=== PATIENT | male | born 1950 | race African-American/Black ===

== ENCOUNTER → 2016-12-19 | Outpatient (CLI) | payer MEDICARE, OTHER ==
[~2016-12-19] MED LIST: REGADENOSON 0.4 MG/5 ML IV ONE
== END | disposition home or self-care (01) ==
LOC: NM 07:43
DX: I12.0 Hypertensive chronic kidney disease with stage 5 chronic kidney disease or end stage renal disease (principal); E11.22 Type 2 diabetes mellitus with diabetic chronic kidney disease; N18.6 End stage renal disease
CPT/HCPCS: 78452; 93017; A9500; C1893; J2785

== ENCOUNTER 2017-10-25 10:17 | Day surgery (SDC) | payer MEDICARE, OTHER ==
[~2017-10-25] VITALS: Ht 175.3 cm; Wt 83.5 kg
[~2017-10-25 10:17] MED LIST changes: +GLIM2TAB2 PO; +LISI40TA4 PO; -REGADENOSON 0.4 MG/5 ML IV ONE; +SEVE800T8 PO
[2017-10-25] MEDS ORDERED: BACITRACIN ZINC 15GM TUBE TOP ONE (10:58)
[2017-10-25] MEDS ORDERED: GELATIN SPONGE,ABSORBABLE SZ 100 ONE (10:58)
[2017-10-25] MEDS ORDERED: HEPARIN 100 UNITS/1 ML VIAL ONE (10:58)
[2017-10-25] MEDS ORDERED: LIDOCAINE HCL 1% 20ML VIAL (Pyxis) INJ ONE (10:59)
[2017-10-25] MEDS ORDERED: BUPIVACAINE HCL/PF 0.5% (5MG/ML) 10ML ONE (10:59)
[2017-10-25] MEDS ORDERED: THROMBIN (BOVINE) 5000 UNITS/VIAL TOP ONE (10:59)
[2017-10-25] MEDS ORDERED: HEPARIN SODIUM 1,000 UNIT/1ML VIAL IV ONE (10:59)
[2017-10-25] MEDS ORDERED: BACITRACIN 50,000 UNITS/VIAL ONE (10:59)
[2017-10-25 11:21] LABS: EOSINOPHILS % 4.4 % (0.0-5.0); HEMATOCRIT. 31.8 % (42.0-52.0); LYMPHOCYTES % 11.9 % (20.0-50.0); MEAN CORPUSCULAR HEMOGLOBIN 30.4 pg (28.0-32.0); MEAN CORPUSCULAR VOLUME 88.4 fL (80.0-94.0); MEAN PLATELET VOLUME 8.1 fl (7.4-10.4); MONOCYTES % 10.6 % (2.0-8.0); NEUTROPHILS % 72.1 % (40.0-76.0); PLATELET 252 x1000/uL (130-400)
[2017-10-25 11:26] LABS: INR 1.1; PROTHROMBIN TIME 11.3 sec (9.4-11.6)
[2017-10-25] MEDS ORDERED: SODIUM CHLORIDE 0.9% 500 ML IV ONE (11:30)
[2017-10-25] MEDS ORDERED: DEXTROSE 50% WATER 50ML SYRINGE IV NR (11:30)
[2017-10-25] MEDS ORDERED: FENTANYL CITRATE/PF 50MCG/ML 2ML VIAL ONE (11:42)
[2017-10-25] MEDS ORDERED: MIDAZOLAM HCL 2 MG/2 ML VIAL ONE (11:42)
[2017-10-25] MEDS ORDERED: PROPOFOL 200MG/20ML VIAL IV ONE (11:43)
[2017-10-25] MEDS ORDERED: LIDOCAINE HCL/PF 1% 10 MG/ML 5ML VIAL ONE (11:43)
[2017-10-25] MEDS ORDERED: ACETAMINOPHEN 325MG TABLET PO PRN (11:45)
[2017-10-25] MEDS ORDERED: CEFAZOLIN SODIUM 1000MG/VIAL ONE (11:46)
[2017-10-25] MEDS ORDERED: ONDANSETRON HCL 4MG/2ML VIAL ONE (12:05)
[2017-10-25] MEDS ORDERED: METOCLOPRAMIDE HCL 10MG/2ML VIAL ONE (12:05)
[2017-10-25] MEDS ORDERED: EPHEDRINE SULFATE 50MG/ML VIAL ONE (12:09)
[2017-10-25] MEDS ORDERED: PHENYLEPHRINE HCL 10 MG/ML 1ML (IV VIAL) IV ONE (12:23)
[2017-10-25] MEDS ORDERED: HEPARIN 1000 UNITS/ML 10ML ONE (12:24)
[2017-10-25] MEDS ORDERED: PROTAMINE SULFATE 10MG/ML VIAL 5ML IV ONE (13:15)
[2017-10-25] MEDS ORDERED: CINA30 PO (13:35)
[2017-10-25] MEDS ORDERED: FLUC200T51 PO (13:35)
[2017-10-25] MEDS ORDERED: MORPHINE SULFATE 4 MG/ML CPJ (NOT FOR IM USE) IV PRN (14:15)
== END 2017-10-25 16:35 | disposition home or self-care (01) ==
LOC: OR 10:17
PROVIDERS: ATTEND Surgery Vascular Surgery
DX: T82.898A Other specified complication of vascular prosthetic devices, implants and grafts, initial encounter (principal); I44.0 Atrioventricular block, first degree; E11.22 Type 2 diabetes mellitus with diabetic chronic kidney disease; I12.0 Hypertensive chronic kidney disease with stage 5 chronic kidney disease or end stage renal disease; N18.6 End stage renal disease; Z99.2 Dependence on renal dialysis; Z91.048 Other nonmedicinal substance allergy status
CPT/HCPCS: 36415; 36838; 80048; 82962; 85025; 85610; 85730; 93005; C1768; J0171; J0690; J1644; J2250; J2370; J2405; J2720; J2765; J3010; J3490; J7040; J1642; J2704

== ENCOUNTER → 2018-02-05 | Outpatient (CLI) | payer MEDICARE ==
[~2018-02-05] MED LIST changes: +CINA30 PO; +FLUC200T51 PO
== END | disposition home or self-care (01) ==
LOC: RAD 09:32
PROVIDERS: ATTEND Internal Medicine Nephrology
DX: M25.511 Pain in right shoulder (principal); R53.1 Weakness
CPT/HCPCS: 73030